=== PATIENT | male | born 1995 | race Native Hawaiian/Other Pacific Islander ===

== ENCOUNTER 2022-06-14 10:58 | Emergency (ER) | payer OTHER ==
[~2022-06-14] VITALS: Ht 185.4 cm; Wt 81.6 kg
[2022-06-14 10:58] VITALS: BP 130/81; TEMP 97.9
== END 2022-06-14 12:43 | disposition home or self-care (01) ==
LOC: ED 10:58
DX: T67.8XXA Other effects of heat and light, initial encounter (principal); S05.01XA Injury of conjunctiva and corneal abrasion without foreign body, right eye, initial encounter; X30.XXXA Exposure to excessive natural heat, initial encounter; Y93.01 Activity, walking, marching and hiking; Y92.89 Other specified places as the place of occurrence of the external cause
CPT/HCPCS: 93005; 99282